=== PATIENT | female | born 1985 | race Caucasian/White ===

== ENCOUNTER 2016-11-19 07:46 | Inpatient (IN) | payer OTHER ==
[~2016-11-19] VITALS: Ht 177.8 cm; Wt 127.4 kg
[2016-11-19] VITALS (18 sets, daily range): BP systolic 115–157; BP diastolic 56–85
[~2016-11-19 07:46] MED LIST: ASPIR 8181 M1 PO; CAMILA0.35 MG PO; FOLIC ACID0.8 MG PO; HEMOCYTE324 MG PO; IBUPROFEN800 MG PO; PRENATAL TABLE1 EAC3 PO
[2016-11-19] MEDS ORDERED: ZOLOFT100 MG PO (08:30)
[2016-11-19 10:55] LABS: EOSINOPHIL (%) 0.2 % (0-5); HEMATOCRIT 37.3 % (36.0-46.0); IMMATURE GRANULOCYTE (%) 0.9 % (0.0-0.7); IMMATURE GRANULOCYTE COUNT 0.2 K/uL; INSTRUMENT ABS NEUTROPHIL CT 15.3 K/uL; LYMPHOCYTE COUNT 2.3 K/uL (1.0-2.8); MCH 29.3 PG (29.0-34.0); MCHC 33.5 G/DL (30.0-36.0); MCV 87.4 FL (83-99); MEAN PLAT.VOLUME 10.5 uM^3 (9.5-12.4); MONOCYTE (%) 5.1 % (3-12); NEUTROPHIL (%) 81.3 % (45-76); NEUTROPHIL COUNT 15.3 K/uL (1.8-6.4); PLATELET COUNT 288 K/uL (156-360); RBC DIS.WIDTH-CV 12.8 % (11.8-14.6); RBC DIS.WIDTH-SD 40.7 % (39-53); RED BLOOD COUNT 4.27 M/uL (3.80-5.20); WHITE BLOOD COUNT 18.8 K/uL (4.1-10.2)
[2016-11-20 06:52] LABS: BASOPHIL COUNT 0.1 K/uL (0-0.1); EOSINOPHIL (%) 0.7 % (0-5); EOSINOPHIL COUNT 0.1 K/uL (0-0.3); HEMATOCRIT 29.3 % (36.0-46.0); IMMATURE GRANULOCYTE (%) 0.9 % (0.0-0.7); IMMATURE GRANULOCYTE COUNT 0.2 K/uL; INSTRUMENT ABS NEUTROPHIL CT 11.8 K/uL; LYMPHOCYTE COUNT 4.5 K/uL (1.0-2.8); MCH 31.3 PG (29.0-34.0); MCHC 34.8 G/DL (30.0-36.0); MCV 89.9 FL (83-99); MEAN PLAT.VOLUME 10.5 uM^3 (9.5-12.4); MONOCYTE (%) 7.9 % (3-12); MONOCYTE COUNT 1.4 K/uL (0-0.8); NEUTROPHIL (%) 65.4 % (45-76); NEUTROPHIL COUNT 11.8 K/uL (1.8-6.4); PLATELET COUNT 250 K/uL (156-360); RBC DIS.WIDTH-CV 13.1 % (11.8-14.6); RBC DIS.WIDTH-SD 42.9 % (39-53); WHITE BLOOD COUNT 18.1 K/uL (4.1-10.2)
[2016-11-20 06:54] LABS: RED BLOOD COUNT 3.26 M/uL (3.80-5.20)
[2016-11-20 07:23] VITALS: BP 111/65
[2016-11-20 15:01] VITALS: BP 117/65
[2016-11-20 23:00] VITALS: BP 125/64
[2016-11-21 07:39] VITALS: BP 119/65
== END 2016-11-21 12:00 | disposition home or self-care (01) | DRG 775 ==
LOC: LDRP-OP → 2WEST 07:48 → LDRP-OP 20:01 → 2WEST 11-21 12:00 → LDRP-OP 12-18 13:28
PROVIDERS: Advanced Practice Midwife
DX: O70.1 Second degree perineal laceration during delivery (principal); O71.82 Other specified trauma to perineum and vulva; O99.824 Streptococcus B carrier state complicating childbirth; O99.284 Endocrine, nutritional and metabolic diseases complicating childbirth; E72.12 Methylenetetrahydrofolate reductase deficiency; O99.344 Other mental disorders complicating childbirth; F32.9 Major depressive disorder, single episode, unspecified; O99.214 Obesity complicating childbirth; E66.9 Obesity, unspecified; Z68.41 Body mass index [BMI] 40.0-44.9, adult; O22.43 Hemorrhoids in pregnancy, third trimester; Z3A.40 40 weeks gestation of pregnancy; Z37.0 Single live birth
CPT/HCPCS: 85025; C1755; J0290; J3010; J7050; J7120